=== PATIENT | male | born 1960 | race Caucasian/White ===

== ENCOUNTER 2017-01-24 14:31 | Emergency (ER) | payer BC ==
[~2017-01-24] VITALS: Ht 180.3 cm; Wt 88.0 kg
[2017-01-24 14:33] VITALS: BP 120/61; PULSE 82; RESP 18; TEMP 98.5; O2SAT 96
[2017-01-24] MEDS ORDERED: LIDOCAINE HCL 1% 50 ML VIAL INFIL ONE (15:30)
[2017-01-24] MEDS ORDERED: HYDR-3533 PO ×2 (16:07→17:13)
[2017-01-24] MEDS ORDERED: CEPH-460 PO ×2 (16:07→17:13)
[2017-01-24] MEDS ORDERED: BACT800T5 PO ×2 (16:07→17:13)
--- NOTE | 2017-01-24 16:07 | PD ---
HPI Chief Complaint: Injury Time Seen by Provider: 15:14 Travel History International Travel<30 days: No Contact w/Intl Traveler<30days: No Traveled to known affect area: No History of Present Illness HPI 56-year-old man presents emergency department complaining of left thumb injury. He was working at an [employer] shop when a piece of metal that he was trying to hold up came loose and passed his left thumb crushing it. Otherwise has been feeling one healthy. Happened just prior to arrival. Pain is moderately severe. He is up-to-date on his tetanus. No other complaints. No other aggravating or alleviating factors. History Past Medical History Medical History: Denies Significant Hx Past Surgical History Surgical History: No Previous Surgery Social History Alcohol Use: No Tobacco Use: No Allergies-Medications (Allergen,Severity, Reaction): Coded Allergies: No Known Allergies (Verified Allergy, Unknown, 01/24/17) Review of Systems Except as stated in HPI: all other systems reviewed are Neg Physical Exam Narrative GENERAL: The 56-year-old man, generally well-appearing, no acute distress. SKIN: Warm and dry. CARDIOVASCULAR: Warm and well perfused. RESPIRATORY: Normal rate and effort. MUSCULOSKELETAL: Focused exam of the left hand reveals the thumb tip is partially oval. The nail itself is not well attached. The distal tip has a little bit dusky discoloration. He states he has good sensation in it. Cap refill is sluggish. NEUROLOGICAL: Awake and alert. No gross deficits. Data Data Last Documented VS Vital Signs Date Time Temp Pulse Resp B/P (MAP) Pulse Ox O2 Delivery O2 Flow Rate FiO2 01/24/17 15:58 78 18 98 Room Air 01/24/17 14:33 98.5 120/61 (80) Orders Orders Lidocaine 1% Inj (50 Ml) (Xylocaine 1% I (01/24/17 15:30) Finger ([id number]) (01/24/17 ) Cephalexin (Keflex) (01/24/17 16:00) Sulfamet-Trimeth Ds 800-160 Mg (Bactrim (01/24/17 16:00) MDM Medical Decision Making Medical Screen Exam Complete: Yes Emergency Medical Condition: Yes Interpretation(s) My review of x-ray: Fracture of the distal tuft of the left thumb with displacement. Differential Diagnosis Thumb fracture, thumb laceration, crush injury, avulsion, other Narrative Course Medical decision making This 56-year-old man who presents to the emergency department with avulsion of the left thumb. Diagnosis Primary Impression: Crushing injury of left thumb, initial encounter Referrals: Chilango Begum III, MD 3 days Additional Instructions: Take antibiotics as prescribed. Use pain medicine as needed. Follow-up with Dr. Begum in the next 3-5 days for repeat evaluation. Return to the emergency department for any worsening pain redness swelling or any other new or worsening symptoms. Med/Other Pt SpecificInfo: Prescription(s) given Scripts Hydrocodone-Acetaminophen (Lortab) 5-325 Mg Tab 1-2 TAB PO Q6H Y for PAIN, #12 TAB 0 Refills Prov: Celestine Romeo MD 01/24/17 Sulfamethoxazole-Trimethoprim (Bactrim DS) 800-160 Mg Tab 1 TAB PO BID for Infection for 7 Days, #14 TAB 0 Refills Prov: Celestine Romeo MD 01/24/17 Cephalexin (Keflex) 500 Mg Capsule 500 MG PO TID for Infection for 7 Days, CAP 0 Refills Prov: Celestine Romeo MD 01/24/17 Disposition: 01 DISCHARGE HOME Condition: Stable Celestine Romeo MD Jan 24, 2017 16:07
[2017-01-24] MEDS ORDERED: CEPHALEXIN MONOHYDRATE 500 MG CAP PO ONE (16:30)
--- NOTE | 2017-01-24 16:49 | RADRPT ---
EXAM DATE/TIME: 01/24/2017 15:48 [facility] COMPARISON: No previous studies available for comparison. INDICATIONS : Left thumb pain after patient hit finger on awning today MEDICAL HISTORY : None. SURGICAL HISTORY : None. ENCOUNTER: Initial ACUITY: 1 day PAIN SCORE: 2/10 LOCATION: Left distal thumb FINDINGS: 3 views of the left thumb reveal an acute comminuted fracture involving the distal aspects of the tuf t. 3 fragments are seen. These are dispersed. There is a suggestion of a soft tissue defect as well. No radiopaque foreign body. Remaining thumb is unremarkable. CONCLUSION: Comminuted tuft fracture as detailed above. Sánchez Tomlin Jr., MD on January 24, 2017 at 16:46 Board Certified Radiologist. This report was verified electronically.
--- NOTE | 2017-01-24 16:53 | PD ---
Physical Exam Time Seen by Provider: 16:00 Narrative Assessment migraine attending Dr. Poole to repair left thumb laceration please see his full name for patient details. LACERATION LOCATION: Left thumb LENGTH: [3cm total] NUMBER OF STITCHES/MARICEL: [12 total] REPAIR: The area of the laceration was prepped with Betadine and sterilely draped. Digital block with 1% lidocaine. The wound was copiously irrigated and explored without evidence of foreign body, tendon injury or neurovascular injury. The wound was closed using 4-0 Ethilon healing. This was a single layer repair. Nailbed laceration repaired. A sterile dressing was applied. The patient was advised to keep the dressing clean and dry. Patient tolerated the procedure well. Data Data Last Documented VS Vital Signs Date Time Temp Pulse Resp B/P (MAP) Pulse Ox O2 Delivery O2 Flow Rate FiO2 01/24/17 15:58 78 18 98 Room Air 01/24/17 14:33 98.5 120/61 (80) Orders Orders Lidocaine 1% Inj (50 Ml) (Xylocaine 1% I (01/24/17 15:30) Finger ([id number]) (01/24/17 ) Cephalexin (Keflex) (01/24/17 16:30) Sulfamet-Trimeth Ds 800-160 Mg (Bactrim (01/24/17 17:00) Ed Discharge Order (01/24/17 16:07) MDM Supervised Visit with JUANCHO: Yes Diagnosis Primary Impression: Crushing injury of left thumb, initial encounter Referrals: Chilango Begum III, MD 3 days Patient Instructions: General Instructions Departure Forms: Tests/Procedures Additional Instruction: Take antibiotics as prescribed. Use pain medicine as needed. Follow-up with Dr. Begum in the next 3-5 days for repeat evaluation. Return to the emergency department for any worsening pain redness swelling or any other new or worsening symptoms. Scripts Hydrocodone-Acetaminophen (Lortab) 5-325 Mg Tab 1-2 TAB PO Q6H Y for PAIN, #12 TAB 0 Refills Prov: Celestine Romeo MD 01/24/17 Sulfamethoxazole-Trimethoprim (Bactrim DS) 800-160 Mg Tab 1 TAB PO BID for Infection for 7 Days, #14 TAB 0 Refills Prov: Celestine Romeo MD 01/24/17 Cephalexin (Keflex) 500 Mg Capsule 500 MG PO TID for Infection for 7 Days, CAP 0 Refills Prov: Celestine Romeo MD 01/24/17 Disposition: 01 DISCHARGE HOME Condition: Stable Anna Baxter Jan 24, 2017 16:53
[2017-01-24] MEDS ORDERED: SULFAMETHOXAZOLE-TRIMETHOPRIM DS 800-160 MG TAB PO ONE (17:00)
== END 2017-01-24 17:49 | disposition home or self-care (01) ==
LOC: NEPD 14:31
DX: S67.02XA Crushing injury of left thumb, initial encounter (principal); S61.012A Laceration without foreign body of left thumb without damage to nail, initial encounter; W20.8XXA Other cause of strike by thrown, projected or falling object, initial encounter; Y99.0 Civilian activity done for income or pay
CPT/HCPCS: 12002; 73140